=== PATIENT | female | born 1995 | race Caucasian/White ===

== ENCOUNTER 2024-01-13 02:17 | Emergency (ER) | payer OTHER ==
[~2024-01-13] VITALS: Ht 157.5 cm; Wt 86.2 kg
[2024-01-13] MEDS: ONDANSETRON 4 MG/2 ML VIAL IV ONE (02:30)
[2024-01-13] MEDS: KETOROLAC TROMETHAMINE 15 MG INJ IVP ONE (02:30)
[2024-01-13] MEDS ORDERED: KETOROLAC TROMETHAMINE 30 MG INJ ONE (02:31)
[2024-01-13] MEDS ORDERED: ONDANSETRON 4 MG/2 ML VIAL ONE (02:31)
[2024-01-13 02:39] LABS: BASOPHILS # (AUTO) 0.1 K/UL (0.0-0.2); BASOPHILS % (AUTO) 0.5 % (0.0-2.0); EOSINOPHILS # (AUTO) 0.2 K/uL (0.0-0.7); EOSINOPHILS % (AUTO) 1.6 % (0.0-7.0); HEMATOCRIT 39.2 % (31.2-41.9); HEMOGLOBIN 13.7 g/dL (10.9-14.3); LYMPHOCYTES # (AUTO) 3.6 K/uL (0.8-4.8); LYMPHOCYTES % (AUTO) 27.9 % (20.5-51.5); MEAN CORPUSCULAR HEMOGLOBIN 28.5 uug (24.7-32.8); MEAN CORPUSCULAR HGB CONC 35 g/dL (32.3-35.6); MEAN CORPUSCULAR VOLUME 81.5 fL (75.5-95.3); MONOCYTES # (AUTO) 1.1 K/uL (0.1-1.30); MONOCYTES % (AUTO) 8.7 % (0.0-11.0); NEUTROPHILS % (AUTO) 61.3 % (38.5-71.5); PLATELET COUNT (AUTO) 339 K/uL (179-408); RED BLOOD CELL COUNT(AUTO) 4.81 MIL/uL (3.63-4.92); RED CELL DISTRIBUTION WIDTH 13.5 % (12.3-17.7); WHITE BLOOD COUNT (AUTO) 13.1 K/uL (3.8-11.8)
[2024-01-13] MEDS ORDERED: HYDROMORPHONE 1 MG/1 ML DISP.SYRIN ONE ×3 (02:49→04:29)
[2024-01-13 02:58] LABS: DIFFERENTIAL COMMENT 1
[2024-01-13 03:00] LABS: CREATININE 0.8 mg/dL (0.6-1.3); POTASSIUM 3.6 mmol/L (3.5-5.1)
[2024-01-13] MEDS: HYDROMORPHONE 1 MG/1 ML DISP.SYRIN IV ONE ×3 (03:05→04:35)
[2024-01-13 03:06] LABS: ALBUMIN 3.8 g/dL (3.4-5.0); BILIRUBIN,DIRECT 0.1 mg/dL (0.0-0.2); BILIRUBIN,TOTAL 0.5 mg/dL (0.2-1.0); TOTAL PROTEIN, SERUM 7.6 g/dL (6.4-8.2)
[2024-01-13] MEDS ORDERED: HYDR-3980 PO (04:21)
[2024-01-13] MEDS ORDERED: IBUP-1490 PO (04:21)
[2024-01-13] MEDS ORDERED: ONDA4TAB11 PO (04:21)
[2024-01-13 04:58] VITALS: BP 137/81; TEMP 98; O2SAT 97
== END 2024-01-13 04:45 | disposition home or self-care (01) ==
LOC: ER 02:26
DX: K80.20 Calculus of gallbladder without cholecystitis without obstruction (principal); R10.2 Pelvic and perineal pain
CPT/HCPCS: 99285; 96374; 76705; 96375; 80076; 80048; 83690; 85025; 84702; 36415; 96376; J1885; J2405; J1170 ×3; A4606; A4663